=== PATIENT | male | born 1960 | race African-American/Black ===

== ENCOUNTER 2017-09-18 10:22 | Day surgery (SDC) | payer MEDICARE, MEDICAID ==
[~2017-09-18] VITALS: Ht 165.1 cm; Wt 68.9 kg
[2017-09-18] VITALS (8 sets, daily range): BP systolic 96–132; BP diastolic 54–88
[2017-09-18] MEDS ORDERED: Lidocaine 1% Plain 30 ml INJ ONE (12:52)
[2017-09-18] MEDS ORDERED: Bupivacaine 0.25% Inj 30ml INJ ONE (12:52)
[2017-09-18] MEDS ORDERED: Sterile Water Irrig 1000ml IRRIG ONE (13:00)
[2017-09-18] MEDS ORDERED: Ketorolac 30mg Inj ONE (13:00)
[2017-09-18] MEDS ORDERED: Metoclopramide 10mg/2ml Inj ONE (13:00)
[2017-09-18] MEDS ORDERED: LR 1000ml ONE (13:00)
[2017-09-18] MEDS ORDERED: Propofol 200mg/20ml IV ONE (13:00)
[2017-09-18] MEDS ORDERED: Midazolam 2mg/2ml Inj ONE (13:00)
[2017-09-18] MEDS ORDERED: fentaNYL 100 mcg/2 mL IV ONE (13:00)
[2017-09-18] MEDS ORDERED: NS Irrig 1000ml IRRIG ONE (13:05)
--- NOTE | 2017-09-18 13:10 | Pre-Procedure Note/Attestation ---
Pre-Procedure Note/Attestation Complete Prior to Procedure Planned Procedure: right Procedure Narrative: 1. ARTHRODESIS RIGHT 2ND PIPJ 2. ARTHROSTOMY OF RIGHT 2ND MPJ Indications for Procedure Pre-Operative Diagnosis: CAPSULITIS RIGHT 2ND MPJ HAMMERTOE RIGHT 2ND TOE PAIN RIGHT TOE Attestation I attest that I discussed the nature of the procedure; its benefits; risks and complications; and alternatives (and the risks and benefits of such alternatives ), prior to the procedure, with the patient (or the patient's legal digital sales representative). Discussed he will likely require bunion surgery on the R foot in the future due to the tracking of the hallux. The goal is to provide pain relief R 2nd toe and 2nd mpj and address bunion at a later date. Patient states he does not want to have surgery in the bunion because it is not painful at this time. I discussed it is better to have this fixed however we will perform a staged procedure with 2nd toe surgery and then address bunion. I attest that, if there was a reasonable possibility of needing a blood transfusion, the patient (or the patient's legal digital sales representative) was given the [place] Department [employer] Services standardized written summary, pursuant to the [place] Blood Safety Act ([place] Health and Safety Code # 1645, as amended). Discussed risks and potential complication including but not limited to: damage to surrounding structures, need for further surgery, dvt, pe, anesthesia complications, non union, mal union, hardware infection, amputation, dehiscence. I attest that I re-evaluated the patient just prior to the surgery and that there has been no change in the patient's H&P, except as documented below: REED BATISTA M.D. Sep 18, 2017 13:09
[2017-09-18] MEDS ORDERED: DiphenhydrAMINE 50mg/ml Inj ONE (13:41)
[2017-09-18] MEDS ORDERED: LR 1000ml 1,000 ML IVLG SCH (13:44)
[2017-09-18] MEDS ORDERED: fentaNYL 100 mcg/2 mL IV PRN (13:45)
[2017-09-18] MEDS ORDERED: Metoclopramide 10mg/2ml Inj IVP PRN (13:45)
[2017-09-18] MEDS ORDERED: Midazolam 2mg/2ml Inj IVP PRN (13:45)
[2017-09-18] MEDS ORDERED: Morphine Sulfate 2mg/ml Inj IVP PRN (13:45)
[2017-09-18] MEDS ORDERED: Ketorolac 30mg Inj IV PRN (13:45)
--- NOTE | 2017-09-18 13:47 | Anethesia Preoperative Eval ---
Anesthesia Pre-op PMH/ROS General Date of Evaluation: Sep 18, 2017 Time of Evaluation: 13:01 Anesthesiologist: AMY ASA Score: ASA 2 Mallampati Score Class I : Soft palate, uvula, fauces, pillars visible Class II: Soft palate, uvula, fauces visible Class III: Soft palate, base of uvula visible Class IV: Only hard plate visible Mallampati Classification: Class II Surgeon: Alfonso Diagnosis: Shanique Anesthesia History: none Family History: no anesthesia problems Allergies: Coded Allergies: PENICILLINS (Verified Allergy, Severe, 09/18/17) skin break out, loss of rowena Medications: see eMAR Past Medical History Cardiovascular: Reports: HTN Anesthesia Pre-op Phys. Exam Physician Exam Last Vital Signs Date Time Temp Pulse Resp B/P (MAP) Pulse Ox O2 Delivery O2 Flow Rate FiO2 09/18/17 11:21 97.1 55 18 120/75 97 Room Air Constitutional: NAD Neurologic: CN 2-12 intact Cardiovascular: RRR Respiratory: CTA Gastrointestinal: S/NT/ND Airway Exam Mallampati Score: Class II MO: full ROM: full Anesthesia Pre-op A/P Risk Assessment & Plan Plan: GA Status Change Before Surgery: No Pre-Antibiotics Drug: Ancef Given Within 1 Hr of Incision: Yes Time Given: 13:15 Sky Harmon M.D. Sep 18, 2017 13:47
--- NOTE | 2017-09-18 13:48 | Immediate Post-Op Evaluation ---
Immediate Post-Op Evalulation Immediate Post-Op Evalulation Procedure: Right Hammertoe Correction Date of Evaluation: Sep 18, 2017 Time of Evaluation: 15:00 IV Fluids: 1000 Blood Products: 0 Estimated Blood Loss: 5 Urinary Output: 0 Blood Pressure Systolic: 123 Blood Pressure Diastolic: 79 Pulse Rate: 68 Respiratory Rate: 16 O2 Sat by Pulse Oximetry: 99 Temperature (Fahrenheit): 98.2 Pain Score (1-10): 0 Nausea: No Vomiting: No Patient Status: awake, reacts, patent Hydration Status: adequate Drug: Ancef Given Within 1 Hr of Incision: Yes Time Given: 13:15 Sky Harmon M.D. Sep 18, 2017 13:48
--- NOTE | 2017-09-18 13:50 | 48 Hour Post Anesthesia Eval ---
Post Anesthesia Evaluation Procedure: Right Hammertoe Correction Date of Evaluation: Sep 20, 2017 Time of Evaluation: 10:00 Blood Pressure Systolic: 156 0: 87 Pulse Rate: 69 Respiratory Rate: 14 Temperature (Fahrenheit): 97 O2 Sat by Pulse Oximetry: 99 Airway: patent Nausea: No Vomiting: No Pain Intensity: 0 If pain is > 6 Comment: 0 Hydration Status: adequate Mental Status/LOC: patient returned to baseline Follow-up care needed: patient intructions given Sky Harmon M.D. Sep 18, 2017 13:50
--- NOTE | 2017-09-18 14:40 | Operative Note - PDOC ---
Operative Note Operative Note Date of Operation/Procedure: Sep 18, 2017 Chief Complaint: right 2nd toe pain, capsulitis Pre-op Diagnosis: CAPSULITIS RIGHT 2ND MPJ HAMMERTOE RIGHT 2ND TOE PAIN RIGHT TOE Procedure: 1. right 2nd pipj arthrodesis 2. right 2nd mpj arthrotomy Post-op Diagnosis: same as above Post-op Diagnosis: same as pre-op Surgeon: reed batista dpm Additional Surgeons: dr mohamud as campbell Anesthesiologist: sterling GALVEZ Anesthesia: local, MAC Specimen: none Complications: none Condition: unstable Fluids: see anesthesia Estimated Blood Loss: minimal - 10 Drains: none Packing: no -applied 0.0045 " k wire R 2nd toe into the metatarsal Tourniquet time: 55 - min Implant(s) used?: No REED BATISTA M.D. Sep 18, 2017 14:40
--- NOTE | 2017-09-18 22:00 | Operative Note - Dictated ---
DATE OF OPERATION: 09/18/2017 PREOPERATIVE DIAGNOSES: 1. Right second toe hammertoe. 2. Capsulitis of right second digit. 3. Pain in the right toe. POSTOPERATIVE DIAGNOSES: 1. Right second toe hammertoe. 2. Capsulitis of right second digit. 3. Pain in the right toe. PROCEDURE PERFORMED: 1. Right second PIPJ arthrodesis. 2. Arthrotomy of the right second MPJ. SURGEON: Lit Hamilton D.P.M. GEOLOGIST PETROLEUM: None. PROVIDER SURGEON: Mehran Lugo M.D. as campbell. ANESTHESIA: MAC with local and I used a 1:1 mixture of 1% lidocaine plain and 0.25% Marcaine plain. ANESTHESIOLOGIST: Sky Harmon M.D. COMPLICATIONS: None. DRAINS: None. SUTURE MATERIAL: A 3-0 Vicryl, 4-0 Vicryl, and 4-0 nylon. DESCRIPTION OF THE PROCEDURE: The patient was brought to the operative suite and placed in supine position on the operative table and secured in place. Appropriate time-out was performed identifying the correct patient, procedure, and limb. Right lower extremity was then prepped and draped in the usual fashion. I used a 4 cm curvilinear incision over the second toe on the second MPJ on the right. I dissected to the level of the subcutaneous tissue and then used a #15 blade in a horizontal fashion and made a capsulotomy along the PIPJ on the right. I then released the ligaments medially and laterally along the proximal phalanx head in a J-stroke fashion and I did the same thing for the intermediate phalanx base. At this time, I removed the head of the proximal phalanx using a sagittal saw and the same thing was performed with the intermediate phalanx base and then I used a dermal curette to get to the level of the healthy subchondral bone. At this time, I directed my attention to the second metatarsophalangeal joint where I used a sharp dissection and carefully made a plain just medial to the EDL tendon to locate the MPJ level. I used a [place] elevator to confirm this was MPJ once I made a stab incision into the capsule. A capsulotomy was then performed to carefully retract the EDL tendon of the right second digit using [place]. At this time, I noted that there was still contracture at the level of the MPJ and I performed in a J-stroke fashion to release the ligaments to the metatarsal head medially and laterally as well as the proximal phalanx base. At this time, I did a Kelikian push-up test. He still had a small amount of contracture at the most anterior aspect of the second MPJ, and therefore, a [place] elevator was used to free up the remaining contractures and this was satisfactory. I then placed a 0.0045 K-wire distally through the end of the distal phalanx and retrograded this back to the proximal phalanx and to the metatarsal neck. This was all confirmed to be satisfactory using C-arm. I then flushed the wound and sutured the EDL tendon with 3-0 Vicryl suture and . Subcutaneous tissue was closed with 4-0 Vicryl and skin was closed with 4-0 nylon in a horizontal mattress fashion. This marked the completion of the case. The wound was dressed with Adaptic, 4x4 Kerlix, and Amish. The patient was brought to PACU with vital signs stable and vascular status intact to the right foot as noted by immediate hyperemia of digits 1 through 5 upon completion of the case. He will be in the partial protective weightbearing in the surgical shoes to the right foot for four weeks using crutches. I will order him some crutches before he leaves. Tylenol With Codeine was prescribed for the patient and given to him. I prescribed #35. The patient will follow up on Sunday for wound check. Sutures will be out in two weeks. I discussed the need for the bunionectomy in the near future. I discussed with the patient if he does not do it, there is a chance that the second digit may rise up again and he will have a contracture. Lit Hamilton M.D. DR: BRET JOB#: [id number] CC:
--- NOTE | 2017-09-19 12:03 | Diagnostic Imaging Report ---
Indication: PAIN, right foot pain, intraoperative Technique: Digital intraoperative images Comparison: Findings: A surgical K wire is seen extending through the second digit. There is evidence of osteotomy of the base of the middle phalanx and possibly the head of the proximal phalanx Impression: Intraoperative images, as described
--- NOTE | 2017-09-21 10:32 | Diagnostic Imaging Report ---
Indication: Pain Technique: XRAY FOOT MIN 3V RIGHT Comparison: Correlation made to fluoroscopic images from surgical procedure. Findings: Patient is status post hammertoe correction of the second digit with wire fixation. There is no acute fracture. There is mild hallux longus. Bony alignment and joint spaces are otherwise preserved. There is a small dorsal calcaneal enthesophyte. Impression: Likely hammertoe correction of the second digit with wire fixation. Mild hallux valgus.
== END 2017-09-18 16:45 | disposition home or self-care (01) ==
LOC: SUR 10:22
DX: M20.41 Other hammer toe(s) (acquired), right foot (principal); M77.9 Enthesopathy, unspecified; I10 Essential (primary) hypertension; Z88.0 Allergy status to penicillin
CPT/HCPCS: 28285; 73620; 73630; 76000; J0690; J1200; J1885; J2001; J2250; J2405; J2704; J2765; J3010; J3490; J7120; 94003; 94150